=== PATIENT | male | born 1975 | race Caucasian/White ===

== ENCOUNTER 2023-03-11 11:23 | Outpatient (CLI) | payer SELFPAY ==
[2023-03-11 12:00] LABS: Estmated Average Glucose 123; Hemoglobin A1C 5.9 % (4.0-6.0)
[2023-03-11 12:04] LABS: Alanine Aminotransferase 22 U/L (0-41); Albumin Level 4.4 g/dL (3.5-5.2); Alkaline Phosphatase 89 U/L (40-130); Aspartate Amino Transferase 14 U/L (0-40); Blood Urea Nitrogen 8 mg/dL (6-20); Calcium 9.3 mg/dL (8.5-10.5); Carbon Dioxide 24 mmol/L (22-29); Chloride 103 mmol/L (98-107); Chol HDL Ratio 3.91 mg/dL (1.0-5.00); Cholesterol 129 mg/dL (0-200); Glomerular Filtration Rate 119.4 mL/min (90-130); Glucose 105 mg/dL (65-115); HDL Cholesterol 33 mg/dL (60-100); LDL Cholesterol Calculated 49 mg/dL (50-129); LDL HDL Ratio 1.48 RATIO (0.00-3.22); Osmolality Calculated 283 mOsm/kg (285-295); Sodium 137 mmol/L (136-145); Total Bilirubin 0.4 mg/dL (0.15-1.2); Total Protein 7.4 g/dL (6.6-8.7); Triglycerides 237 mg/dL (0-150)
[2023-03-11 12:13] LABS: Creatinine Urine, Random 111 mg/dL (39-259); Microalbum Creatinine Ratio Ur 9 mg/dL (0-20); Microalbumin Random Urine 1 ug/dL (0-20)
== END 2023-03-11 11:24 | disposition home or self-care (01) ==
PROVIDERS: PCP Family Medicine; Visit Provider Internal Medicine
DX: E11.9 Type 2 diabetes mellitus without complications (principal); E78.2 Mixed hyperlipidemia
CPT/HCPCS: 36415; 80053; 80061; 82044; 83036

== ENCOUNTER 2023-06-10 15:28 | Outpatient (CLI) | payer OTHER, SELFPAY ==
[2023-06-10 16:06] LABS: Creatinine Urine, Random 122 mg/dL (39-259); Estmated Average Glucose 117; Hemoglobin A1C 5.7 % (4.0-6.0); Microalbum Creatinine Ratio Ur 8 mg/dL (0-20); Microalbumin Random Urine 1 ug/dL (0-20)
[2023-06-10 16:08] LABS: Alanine Aminotransferase 22 U/L (0-41); Albumin Level 4.4 g/dL (3.5-5.2); Alkaline Phosphatase 87 U/L (40-130); Anion Gap 16.5 (5-19); Aspartate Amino Transferase 14 U/L (0-40); Blood Urea Nitrogen 9 mg/dL (6-20); Calcium 9.3 mg/dL (8.5-10.5); Carbon Dioxide 26 mmol/L (22-29); Chloride 102 mmol/L (98-107); Chol HDL Ratio 3.91 mg/dL (1.0-5.00); Cholesterol 133 mg/dL (0-200); Globulin 3.3 g/dL (1.3-4.6); Glomerular Filtration Rate 102.3 mL/min (90-130); Glucose 108 mg/dL (65-115); HDL Cholesterol 34 mg/dL (60-100); LDL Cholesterol Calculated 35 mg/dL (50-129); LDL HDL Ratio 1.03 RATIO (0.00-3.22); Osmolality Calculated 291 mOsm/kg (285-295); Potassium 3.5 mmol/L (3.5-5.1); Sodium 141 mmol/L (136-145); Total Bilirubin 0.4 mg/dL (0.15-1.2); Total Protein 7.7 g/dL (6.6-8.7); Triglycerides 321 mg/dL (0-150)
== END 2023-06-10 15:29 | disposition home or self-care (01) ==
PROVIDERS: PCP Family Medicine; Visit Provider Internal Medicine
DX: Z01.89 Encounter for other specified special examinations (principal)
CPT/HCPCS: 80053; 80061; 82044; 83036

== ENCOUNTER 2023-08-25 12:37 | Outpatient (CLI) | payer OTHER, SELFPAY ==
[2023-08-25 13:39] LABS: Estmated Average Glucose 111; Hemoglobin A1C 5.5 % (4.0-6.0)
[2023-08-25 13:45] LABS: Alanine Aminotransferase 26 U/L (0-41); Albumin Level 4.2 g/dL (3.5-5.2); Alkaline Phosphatase 118 U/L (40-130); Anion Gap 13.2 (5-19); Aspartate Amino Transferase 15 U/L (0-40); Blood Urea Nitrogen 10 mg/dL (6-20); Calcium 8.7 mg/dL (8.5-10.5); Carbon Dioxide 27 mmol/L (22-29); Chloride 102 mmol/L (98-107); Chol HDL Ratio 6.34 mg/dL (1.0-5.00); Cholesterol 184 mg/dL (0-200); Globulin 3.4 g/dL (1.3-4.6); Glomerular Filtration Rate 119.4 mL/min (90-130); Glucose 119 mg/dL (65-115); HDL Cholesterol 29 mg/dL (60-100); Osmolality Calculated 288 mOsm/kg (285-295); Potassium 3.2 mmol/L (3.5-5.1); Sodium 139 mmol/L (136-145); Total Bilirubin 0.6 mg/dL (0.15-1.2); Total Protein 7.6 g/dL (6.6-8.7); Triglycerides 784 mg/dL (0-150)
[2023-08-25 13:48] LABS: Creatinine Urine, Random 82 mg/dL (39-259); Microalbum Creatinine Ratio Ur 12 mg/dL (0-20); Microalbumin Random Urine 1 ug/dL (0-20)
[2023-08-25 13:58] LABS: LDL Cholesterol Direct 33 mg/dL (0-100)
== END 2023-08-25 12:38 | disposition home or self-care (01) ==
LOC: LAB 12:38
PROVIDERS: PCP Family Medicine; Visit Provider Internal Medicine
DX: E11.9 Type 2 diabetes mellitus without complications (principal); E78.2 Mixed hyperlipidemia
CPT/HCPCS: 80053; 80061; 82044; 83036; 83721

== ENCOUNTER 2023-12-23 09:23 | Outpatient (CLI) | payer OTHER, SELFPAY ==
[2023-12-23 10:09] LABS: Alanine Aminotransferase 26 U/L (0-41); Alkaline Phosphatase 118 U/L (40-130); Anion Gap 14.7 (5-19); Aspartate Amino Transferase 16 U/L (0-40); Blood Urea Nitrogen 8 mg/dL (6-20); Calcium 8.4 mg/dL (8.5-10.5); Carbon Dioxide 23 mmol/L (22-29); Chloride 106 mmol/L (98-107); Chol HDL Ratio 5.46 mg/dL (1.0-5.00); Cholesterol 153 mg/dL (0-200); Globulin 3.2 g/dL (1.3-4.6); Glucose 126 mg/dL (65-115); HDL Cholesterol 28 mg/dL (60-100); Osmolality Calculated 290 mOsm/kg (285-295); Potassium 3.7 mmol/L (3.5-5.1); Sodium 140 mmol/L (136-145); Total Bilirubin 0.4 mg/dL (0.15-1.2); Total Protein 7.2 g/dL (6.6-8.7); Triglycerides 685 mg/dL (0-150)
[2023-12-23 10:11] LABS: Estmated Average Glucose 140; Hemoglobin A1C 6.5 % (4.0-6.0)
[2023-12-23 10:14] LABS: Creatinine Urine, Random 132 mg/dL (39-259); Microalbum Creatinine Ratio Ur 8 mg/dL (0-20); Microalbumin Random Urine 1 ug/dL (0-20)
[2023-12-23 10:26] LABS: LDL Cholesterol Direct 30 mg/dL (0-100)
== END 2023-12-23 09:24 | disposition home or self-care (01) ==
PROVIDERS: PCP Family Medicine; Visit Provider Internal Medicine
DX: E11.9 Type 2 diabetes mellitus without complications (principal)
CPT/HCPCS: 80053; 80061; 82044; 83036; 83721

== ENCOUNTER 2024-03-15 17:26 | Outpatient (CLI) | payer OTHER, SELFPAY ==
[2024-03-15 18:21] LABS: Alanine Aminotransferase 25 U/L (0-41); Albumin Level 4.3 g/dL (3.5-5.2); Alkaline Phosphatase 83 U/L (40-130); Blood Urea Nitrogen 13 mg/dL (6-20); Calcium 9.3 mg/dL (8.5-10.5); Carbon Dioxide 24 mmol/L (22-29); Chloride 102 mmol/L (98-107); Chol HDL Ratio 4.61 mg/dL (1.0-5.00); Cholesterol 129 mg/dL (0-200); Glomerular Filtration Rate 101.9 mL/min (90-130); Glucose 171 mg/dL (65-115); HDL Cholesterol 28 mg/dL (60-100); Osmolality Calculated 292 mOsm/kg (285-295); Sodium 139 mmol/L (136-145); Total Bilirubin 0.4 mg/dL (0.15-1.2); Total Protein 7.3 g/dL (6.6-8.7); Triglycerides 513 mg/dL (0-150)
[2024-03-15 18:22] LABS: Anion Gap 16.6 (5-19); Aspartate Amino Transferase 19 U/L (0-40); Potassium 3.6 mmol/L (3.5-5.1)
[2024-03-15 18:22] LABS: Creatinine Urine, Random 129 mg/dL (39-259); Microalbum Creatinine Ratio Ur 8 mg/dL (0-20); Microalbumin Random Urine 1 ug/dL (0-20)
[2024-03-15 18:34] LABS: LDL Cholesterol Direct 39 mg/dL (0-100)
[2024-03-15 23:19] LABS: Estmated Average Glucose 137; Hemoglobin A1C 6.4 % (4.0-6.0)
== END 2024-03-15 17:27 | disposition home or self-care (01) ==
PROVIDERS: PCP Family Medicine; Visit Provider Internal Medicine
DX: I10 Essential (primary) hypertension (principal); E78.2 Mixed hyperlipidemia
CPT/HCPCS: 36415; 80053; 80061; 82044; 83036; 83721

== ENCOUNTER 2024-07-12 14:51 | Outpatient (CLI) | payer OTHER, SELFPAY ==
[2024-07-12 15:36] LABS: Estmated Average Glucose 123; Hemoglobin A1C 5.9 % (4.0-6.0)
[2024-07-12 15:37] LABS: Albumin Level 4.5 g/dL (3.5-5.2); Alkaline Phosphatase 94 U/L (40-130); Anion Gap 17.4 (5-19); Blood Urea Nitrogen 11 mg/dL (6-20); Calcium 9.3 mg/dL (8.5-10.5); Carbon Dioxide 23 mmol/L (22-29); Chloride 100 mmol/L (98-107); Chol HDL Ratio 6.86 mg/dL (1.0-5.00); Cholesterol 199 mg/dL (0-200); Globulin 3.3 g/dL (1.3-4.6); Glomerular Filtration Rate 118.9 mL/min (90-130); Glucose 225 mg/dL (65-115); HDL Cholesterol 29 mg/dL (60-100); Osmolality Calculated 290 mOsm/kg (285-295); Potassium 3.4 mmol/L (3.5-5.1); Sodium 137 mmol/L (136-145); Total Bilirubin 0.3 mg/dL (0.15-1.2); Total Protein 7.8 g/dL (6.6-8.7)
[2024-07-12 15:38] LABS: Creatinine Urine, Random 44 mg/dL (39-259); Microalbum Creatinine Ratio Ur 23 mg/dL (0-20); Microalbumin Random Urine 1 ug/dL (0-20)
[2024-07-12 15:48] LABS: Alanine Aminotransferase < 5 U/L (0-41); Aspartate Amino Transferase 5 U/L (0-40)
[2024-07-12 15:49] LABS: Triglycerides 1265 mg/dL (0-150)
[2024-07-12 16:09] LABS: LDL Cholesterol Direct 45 mg/dL (0-100)
== END 2024-07-12 14:52 | disposition home or self-care (01) ==
LOC: LAB 14:52
PROVIDERS: PCP Family Medicine; Visit Provider Internal Medicine
DX: E11.9 Type 2 diabetes mellitus without complications (principal); E78.2 Mixed hyperlipidemia; I10 Essential (primary) hypertension
CPT/HCPCS: 36415; 80053; 80061; 82044; 83036; 83721

== ENCOUNTER 2024-08-15 17:41 | Emergency (ER) | payer OTHER, SELFPAY ==
[2024-08-15 17:50] VITALS: BP 177/81; PULSE 90; RESP 17; TEMP 36.6; O2SAT 98; BMI 34.4
--- NOTE | 2024-08-15 18:06 | XRR_ITS ---
PROCEDURE INFORMATION: Exam: XR Lumbosacral Spine Exam date and time: 08/15/2024 6:23 PM Age: 49 years old Clinical indication: Low back pain TECHNIQUE: Imaging protocol: Radiologic exam of the lumbosacral spine. Views: 2 or 3 views. COMPARISON: No relevant prior studies available. FINDINGS: Bones/joints: Mild multilevel degenerative disc changes. No fractures. No bony destructive lesions. Soft tissues: Unremarkable. XR/XR lumbar spine 2-3V* [id number] IMPRESSION: 1. No acute findings. 2. Mild multilevel degenerative disc changes.
--- NOTE | 2024-08-15 18:35 | W.ED.BACK ---
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 This started 1 days ago. Patient stated that he could not get his shoes on, or bend today. Symptoms continue to worsen. No bowel, bladder incontinence. No numbness in the groin. Associated symptoms: Deny abdominal pain, nausea or vomiting Related Data Home Medications ?Medication ?Instructions ?Recorded ?Confirmed atorvastatin 20 mg tablet 20 mg PO DAILY 01/10/22 07/18/24 diltiazem HCl 180 mg capsule,24 180 mg PO QAM 01/10/22 07/18/24 hr,extended release hydrochlorothiazide 25 mg tablet 25 mg PO QAM 01/10/22 07/18/24 lisinopril 40 mg tablet 40 mg PO DAILY 01/10/22 07/18/24 Previous Rx's ?Medication ?Instructions ?Recorded fenofibrate 160 mg tablet 160 mg PO DAILY #30 tabs 12/29/23 liraglutide 0.6 mg/0.1 mL (18 mg/3 See Rx Instructions .Route 05/02/24 mL) subcutaneous pen injector .COMPLEX #24 mL (Victoza 3-Abdi) empagliflozin 25 mg tablet See Rx Instructions .Route 07/19/24 (Jardiance) .COMPLEX #90 tabs methocarbamol 500 mg tablet 500 mg PO Q6H PRN muscle spasm 5 08/15/24 days #20 tabs methylprednisolone 4 mg tablets in See Rx Instructions PO .COMPLEX 08/15/24 a dose pack (Medrol (Abdi)) #21 ea Allergies Allergy/AdvReac Type Severity Reaction Status Date / Time No Known Allergies Allergy Verified 07/18/24 17:00 Review of Systems General: Reports: 10 or more systems reviewed and unremarkable except in HPI and below Card: Denies: chest pain or palpitations Resp: Denies: dyspnea or productive cough GI: Denies: abdominal pain, nausea or vomiting : Denies: flank pain or difficulty urinating Musc: Reports: joint pain, limited range of motion and muscle cramps Skin/Breast: Denies: rash or pruritus Neuro: Denies: headache(s) or numbness in extremities Psych: Denies: anxiety or depression Declan/Lymph: Denies: easy bruising or easy bleeding All/Imm: Denies: urticaria or throat swelling PFSH ED PFSH: Social History Smoking and tobacco/nicotine status: never used tobacco/nicotine Physical Exam Const: COMMON NORMALS: patient oriented x3 HENMT: COMMON NORMALS: normocephalic and atraumatic HEAD & SCALP: normocephalic and atraumatic FACE & SINUS: normal facial exam Chest: COMMONS NORMALS: normal inspection of the chest CHEST: Yes Symmetrical chest wall rise Resp: COMMON NORMALS: normal respiratory effort EFFORT & INSPECTION: Yes able to speak in complete sentences Cardio: COMMON NORMALS: S1 normal heart sound present and S2 normal heart sound present HEART SOUNDS: S1 normal heart sound present and S2 normal heart sound present GI: COMMON NORMALS: Normal to inspection, nondistended, normoactive bowel sounds present INSPECTION: Yes normal to inspection Back/Pelvis: SACROILIAC JOINTS: Yes SI joint(s) abnormal SI joint details: tender to palpation OTHER: straight leg raise positive Extremity: COMMON NORMALS: normal to inspection; negative for full ROM (decreased due to pain) Neuro: COMMON NORMALS: patient oriented x3 and CN's II-XII intact bilaterally Psych: COMMON NORMALS: mental status grossly normal and Normal thought process present THOUGHT PROCESS: Normal thought process present Course Vital Signs: Vital signs: Vital Signs Temperature 97.9 F 08/15/24 17:50 Pulse Rate 90 08/15/24 17:50 Respiratory Rate 17 08/15/24 17:50 Blood Pressure 177/81 08/15/24 17:50 Pulse Oximetry 98 08/15/24 17:50 Oxygen Delivery Me thod Room Air 08/15/24 17:50 MDM - Back Pain/Injury Medical Decision Making Patient is a 49-year-old male presented to ED with right sacroiliac pain with radiation down his right leg. A straight leg raise is positive. Symptoms/exam consistent with sciatica. Patient does have relief after Toradol/Norflex/dexamethasone. Will send Medrol Dosepak and Robaxin to pharmacy. Patient states understanding. Labs Radiology Impressions Lumbar Spine X-Ray 08/15/24 18:06 IMPRESSION: 1. No acute findings. 2. Mild multilevel degenerative disc changes. All radiology interpretation(s) finalized by discharge Discharge Plan Discharge Patient Disposition: Home Clinical Impression: Sciatica Qualifiers: Laterality: right Qualified Code(s): M54.31 - Sciatica, right side Condition: Stable Prescriptions: New methylprednisolone [Medrol (Abdi)] 4 mg tablets,dose pack See Rx Instructions .ROUTE .COMPLEX Qty: 21 0RF Rx Instructions: for 6 days methocarbamol 500 mg tablet 500 mg PO Q6H PRN (Reason: muscle spasm) 5 Days Qty: 20 0RF No Action diltiazem HCl 180 mg capsule,extended release 24 hr 180 mg PO QAM lisinopril 40 mg tablet 40 mg PO DAILY hydrochlorothiazide 25 mg tablet 25 mg PO QAM atorvastatin 20 mg tablet 20 mg PO DAILY fenofibrate 160 mg tablet 160 mg PO DAILY Qty: 30 6RF Jardiance 25 mg tablet See Rx Instructions .ROUTE .COMPLEX Qty: 90 3RF Dose Instruction: TAKE ONE TABLET BY MOUTH DAILY Rx Instructions: TAKE ONE TABLET BY MOUTH DAILY liraglutide [Victoza 3-Abdi] 0.6 mg/0.1 mL (18 mg/3 mL) pen injector See Rx Instructions .ROUTE .COMPLEX Qty: 24 1RF Dose Instruction: INJECT 1.8mg SUBCUTANEOUSLY DAILY for THREE MONTHS Rx Instructions: INJECT 1.8mg SUBCUTANEOUSLY DAILY Discharge Orders: Discharge ED (Routine); Ordered 08/15/24 Ordered By: Zoey Reeves Referrals: Jose Juan Burk MD [Primary Care Provider, Family Practice] Discharge Diet: Usual diet Discharge Activity: Limit activity as instructed Patient Instructions: Sciatica (ED), Lumbar Radiculopathy (ED), Lower Back Exercises (ED) Activity Restrictions/Additional Instructions: Please follow above directions on movement. Return to ED for increasing pain, inability to move, redness, or fevers. 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
[2024-08-15] MEDS: orphenadrine 30 mg/mL Inj 2 mL 60 MG IM (18:50)
[2024-08-15] MEDS: ketorolac 30 mg/mL INJ IM (18:50)
[2024-08-15] MEDS: dexamethasone 10 mg/mL INJ IM (18:50)
== END 2024-08-15 18:53 | disposition home or self-care (01) ==
PROVIDERS: Emergency Provider Physician Assistant; PCP Family Medicine
DX: M54.31 Sciatica, right side (principal)
CPT/HCPCS: 72100; 96372; 99284; J1100; J1885; J2360

== ENCOUNTER 2025-01-03 08:46 | Outpatient (CLI) | payer OTHER, SELFPAY ==
[2025-01-03 09:46] LABS: Estmated Average Glucose 154; Hemoglobin A1C 7.0 % (4.0-6.0)
[2025-01-03 09:55] LABS: Creatinine Urine, Random 74 mg/dL (39-259); Microalbum Creatinine Ratio Ur 14 mg/dL (0-20)
[2025-01-03 09:58] LABS: Alanine Aminotransferase 24 U/L (0-41); Albumin Level 4.6 g/dL (3.5-5.2); Alkaline Phosphatase 97 U/L (40-130); Anion Gap 14.8 (5-19); Aspartate Amino Transferase 15 U/L (0-40); Blood Urea Nitrogen 11 mg/dL (6-20); Calcium 9.3 mg/dL (8.5-10.5); Carbon Dioxide 25 mmol/L (22-29); Chloride 103 mmol/L (98-107); Cholesterol 233 mg/dL (0-200); Globulin 3.0 g/dL (1.3-4.6); Glucose 177 mg/dL (65-115); HDL Cholesterol 31 mg/dL (60-100); Osmolality Calculated 292 mOsm/kg (285-295); Potassium 3.8 mmol/L (3.5-5.1); Sodium 139 mmol/L (136-145); Total Protein 7.6 g/dL (6.6-8.7); Triglycerides 855 mg/dL (0-150)
== END 2025-01-03 08:47 | disposition home or self-care (01) ==
LOC: LAB 08:49
PROVIDERS: PCP Family Medicine; Visit Provider Internal Medicine
DX: I10 Essential (primary) hypertension (principal); E78.2 Mixed hyperlipidemia; E11.9 Type 2 diabetes mellitus without complications
CPT/HCPCS: 36415; 80053; 80061; 82044; 83036; 83721